=== PATIENT | female | born 1985 | race Caucasian/White ===

== ENCOUNTER 2017-01-08 07:39 | Outpatient (CLI) | payer BC ==
[~2017-01-08] VITALS: Ht 172.7 cm; Wt 101.2 kg
[~2017-01-08 07:39] MED LIST: ASCO500T5 PO; ASPI-586 PO; CETI10TA20 PO; DIPH25CA79 PO; OMEG10005 PO; PREN-142 PO; RANI150T15 PO; [UNRECOGNIZED DRUG - OTHER] PO
[2017-01-08 08:23] VITALS: BP 144/86
[2017-01-08] MEDS ORDERED: METH500T2 PO (09:10)
[2017-01-08] MEDS ORDERED: ASCO10006 PO (09:10)
== END 2017-01-08 08:30 | disposition home or self-care (01) ==
LOC: PREOP 07:39
PROVIDERS: ATTEND Obstetrics & Gynecology
DX: Z01.818 Encounter for other preprocedural examination (principal); O82 Encounter for cesarean delivery without indication; Z3A.00 Weeks of gestation of pregnancy not specified
CPT/HCPCS: 87081

== ENCOUNTER 2017-01-13 07:00 | Inpatient (IN) | payer BC ==
[~2017-01-13] VITALS: Ht 170.2 cm; Wt 100.2 kg
[~2017-01-13 07:00] MED LIST changes: +ASCO10006 PO; +METH500T2 PO
[2017-01-13 10:44] VITALS: BP 137/92
[2017-01-13] MEDS ORDERED: LACTATED RINGERS 1,000 ML IV ONE ×2 (10:45→12:22)
[2017-01-13] MEDS: LACTATED RINGERS 1,000 ML IV PRN ×2 (11:15→13:18)
[2017-01-13] MEDS ORDERED: metroNIDAZOLE 500MG/100ML IVPB 100 ML ONE (12:20)
[2017-01-13] MEDS ORDERED: FAMOTIDINE 20MG/2ML IV (PEPCID) ONE (12:21)
[2017-01-13] MEDS ORDERED: METOCLOPRAMIDE INJ 10 MG/2 ML (REGLAN) ONE (12:21)
[2017-01-13] MEDS ORDERED: CITRIC ACID/SOB CIT (BICITRA) 30 ML UDC ONE (12:21)
[2017-01-13] MEDS ORDERED: ceFAZolin 2 GM/50 ML NS 50 ML ONE (12:21)
[2017-01-13 12:30] VITALS: BP 139/84
[2017-01-13] MEDS ORDERED: CITRIC ACID/SOB CIT (BICITRA) 30 ML UDC PO ONE (12:45)
[2017-01-13] MEDS ORDERED: FAMOTIDINE 20MG/2ML IV (PEPCID) IV ONE (12:45)
[2017-01-13] MEDS ORDERED: METOCLOPRAMIDE INJ 10 MG/2 ML (REGLAN) IV ONE (12:45)
[2017-01-13] MEDS ORDERED: metroNIDAZOLE 500 MG/100 ML IVPB (PRE-MIX) IV ONE (12:45)
[2017-01-13] MEDS ORDERED: CATHETER FLUSH 10 ML SYR IV PRN (12:45)
[2017-01-13] MEDS ORDERED: ceFAZolin 2 GM/NS 50 ML IV ONE (12:45)
[2017-01-13 12:50] LABS: BASOPHILS % (AUTO) 0 % (0-10); EOSINOPHILS % (AUTO) 0 % (0-10); LYMPHOCYTES # (AUTO) 1.8 X 10^3 (1.0-4.0); LYMPHOCYTES % (AUTO) 17 % (12-44); MEAN CORPUSCULAR HEMOGLOBIN 30 PG (25-34); MEAN CORPUSCULAR HGB CONC 34 G/DL (32-36); MEAN CORPUSCULAR VOLUME 87 FL (80-99); MEAN PLATELET VOLUME 11.2 FL (7.4-10.4); MONOCYTES # (AUTO) 0.5 X 10^3 (0.0-1.0); MONOCYTES % (AUTO) 5 % (0-12); NEUTROPHILS # (AUTO) 8.4 X 10^3 (1.8-7.8); NEUTROPHILS % (AUTO) 78 % (42-75); PLATELET COUNT 201 10^3/uL (130-400); RED BLOOD COUNT 4.25 10^6/uL (4.35-5.85); RED CELL DISTRIBUTION WIDTH 13.9 % (10.0-14.5); WHITE BLOOD COUNT 10.7 10^3/uL (4.3-11.0)
--- NOTE | 2017-01-13 12:59 | History & Physical ---
History and Physical Date Seen by Provider: Jan 13, 2017 Time Seen by Provider: 12:55 this patient is a 31-year-old 1 white female with a due date of February 04, 2017 based on an ultrasound performed in the second trimester. At best assessment this patient is at the less than 36 weeks is very likely at 38 weeks and could potentially be passing 40 weeks. She has gestational diabetic and also has -induced hypertension requiring Aldomet for blood pressure control she is admitted now for elective primary delivery at her request. She is fully counseled regarding delivery options including trial of labor versus a delivery she is adamant in that she does not want to labor she does not want to experience vaginal delivery she does not want to potentially suffer the sequelae and terms of pelvic support and adherent to a vaginal delivery. She has repeatedly requested delivery. Surgical risks complications recovering follow-up involvement fully discussed patient presents now ready to proceed for delivery. patient did have a group B strep culture performed on December 24, 2016 that was negative. Allergies are none medications are vitamins/vitamin C/omega-3/Zyrtec/Zantac/Benadryl/ Colace/ASA 81 mg daily past medical history, past surgical history, family history, social history, and obstetric history are per the antepartum record HEENT exam is normal Neck supple no hepatomegaly Abdomen is gravid soft nontender nondistended Extremities show no clubbing cyanosis. Homans sign. Pelvic exam is deferred Normal heart rate pattern with occasional contraction Laboratory Tests 01/13/17 11:31 assessment and plan term at 38 weeks gestation patient with gestational diabetes and -induced hypertension. She presents now for scheduled elective primary delivery. term at 38 weeks gestation with gestational diabetes and request for primary delivery Allergies and Home Medications Allergies Coded Allergies: No Known Drug Allergies (Unverified , 01/08/17) Home Medications Ascorbic Acid 1,000 Mg Tablet, 1,000 MG PO DAILY, (Reported) Aspirin 81 Mg Tablet.dr, 81 MG PO DAILY, (Reported) Cetirizine HCl 10 Mg Tablet, 10 MG PO DAILY, (Reported) Methyldopa 500 Mg Tablet, 250 MG PO BID, (Reported) take 1/2 of 500mg tab [place]-3 Fatty Acids 1,000 Mg Capsule, 1,000 MG PO DAILY, (Reported) Vit No.124/Iron/FA 1 Each Tablet, 1 EACH PO DAILY, (Reported) Ranitidine HCl 150 Mg Tablet, 150 MG PO DAILY, (Reported) LARRY HERNANDEZ MD Jan 13, 2017 12:59 pm
[2017-01-13] MEDS ORDERED: D5 LR IV SOLUTION 1,000 ML IV SCH (13:00)
[2017-01-13] MEDS ORDERED: ceFAZolin INJECTION 2,000 MG in NS (IVPB) 50 ML IV ONE (13:00)
[2017-01-13] MEDS ORDERED: fentaNYL INJECTION 100 MCG/2 ML AMP ONE (13:08)
[2017-01-13] MEDS ORDERED: D5 LR IV SOLUTION 1,000 ML IV ONE (13:11)
[2017-01-13] MEDS ORDERED: KETAMINE HCL 100 MG/ML 5 ML VIAL ONE (13:12)
[2017-01-13] MEDS ORDERED: ONDANSETRON 4 MG/2 ML (SDV) Z0FRAN IVP PRN (13:15)
[2017-01-13] MEDS ORDERED: MEASLES,MUMPS,RUBELLA 1 EA INJ SC ONE (13:15)
[2017-01-13] MEDS ORDERED: INFLUENZA TRIvalent 2017-2018 0.5 ML/45 MCG SYR IM ONE (13:15)
[2017-01-13] MEDS ORDERED: MEPERIDINE (DEMEROL) INJ 100 MG/ML IM PRN (13:15)
[2017-01-13] MEDS ORDERED: PROMETHAZINE INJ 25 MG/ML (PHENERGAN) AMP IM PRN (13:15)
[2017-01-13] MEDS ORDERED: TETANUS,DIPTH,PERTUSS P/F (BOOSTRIX) 0.5 ML VIAL IM ONE (13:15)
[2017-01-13] MEDS ORDERED: ONDANSETRON 4 MG/2 ML (SDV) Z0FRAN ONE (13:46)
[2017-01-13] MEDS ORDERED: KETOROLAC 30 MG/ML VIAL ONE (13:46)
[2017-01-13] MEDS: KETOROLAC 30 MG/ML VIAL IVP SCH ×2 (14:00→20:40)
[2017-01-13] MEDS ORDERED: OXYTOCIN/NORMAL SALINE 1,000 ML IV ONE (14:04)
[2017-01-13 16:00] VITALS: BP 125/77
[2017-01-13] MEDS: OXYTOCIN/NORMAL SALINE 500 ML IV SCH ×2 (17:49→17:50)
[2017-01-13] MEDS: oxyCODONE/APAP 10/325MG (PERCOCET 10) TABLET PO PRN ×2 (19:00→23:27)
[2017-01-13 20:00] VITALS: BP 114/64
[2017-01-13] MEDS: DOCUSATE SODIUM 100 MG (COLACE) CAP PO SCH (20:40)
--- NOTE | 2017-01-13 22:01 | OPERATIVE REPORT ---
DATE OF SERVICE: 01/13/2017 PREOPERATIVE DIAGNOSES: A 38-week gestation with gestational diabetes and -induced hypertension. POSTOPERATIVE DIAGNOSES: A 38-week gestation with gestational diabetes and -induced hypertension with likely some degree of intrauterine growth restriction. OPERATIVE PROCEDURE: Primary low-transverse delivery of a viable male with Apgars of 7 and 9 at 1 and 5 respectively, weight 5 pounds 14 ounces. Cord blood, pH is 7.30 and time at 1347. OPERATIVE DESCRIPTION: With the patient in supine position, under satisfactory spinal anesthesia, she was prepped and draped in usual fashion for abdominal surgery. Coburn catheter was placed in the urinary bladder. A Pfannenstiel incision made through the skin with a scalpel. The patient's abdomen was entered in the usual manner. Bladder retractor placed in position, clean scalpel used to make a 4 cm hysterotomy incision transversally across the lower uterine segment that was extended by blunt dissection. On hysterotomy, a fairly small to moderate amount of amniotic fluid was released. A vigorous viable male infant was delivered via the uterine incision. Ervin forceps were applied to facilitate the delivery and avoid excessive pressure on the patient's upper abdomen. The infant was bulb suctioned on delivery of the head and again on completion of delivery. Stats were noted above. The umbilical cord was doubly clamped. The cord was cut and the baby passed to the pediatric nurse in attendance for delivery. Cord bloods were obtained. Placenta delivered spontaneously Alonso. It was somewhat small and somewhat calcified, but otherwise normal. It did have a 3-vessel cord. The uterus was exteriorized, anterior wiped clean with a wet laparotomy sponge. Uterine incision closed with a running lock suture of 2-0 Vicryl. Hemostasis was complete. The uterus was returned to the abdominal cavity. All blood clot and debris removed from the abdominal cavity. With sponge and needle counts correct, hemostasis assured. The anterior parietal peritoneum was closed with a running suture of 2-0 Vicryl. The rectus muscles were closed with that suture as well. The rectus fascia was closed with 2-0 Vicryl, subcutaneous tissue with 2-0 Vicryl and the skin was stapled. Sponge and needle counts were correct at the end of procedure. Estimated blood loss was around 500 mL. The patient tolerated the procedure well and was transferred to the recovery room in stable condition. The had been taken stable to the full-term nursery under the care of the pediatric nurse. Job ID: [id number] DocumentID: [id number] Dictated Date: 01/13/2017 14:09:38 Dinkey Mechanic Date: 01/13/2017 22:00:01 Dictated By: LARRY HERNANDEZ MD
[2017-01-14] VITALS: BP 112/74
[2017-01-14] MEDS: KETOROLAC 30 MG/ML VIAL IVP SCH ×2 (01:30→06:39)
[2017-01-14] MEDS: oxyCODONE/APAP 10/325MG (PERCOCET 10) TABLET PO PRN ×2 (03:07→09:29)
[2017-01-14 04:00] VITALS: BP 109/61
[2017-01-14] MEDS ORDERED: SIMETHICONE 80 MG (MYLICON) CHEW PO PRN (06:45)
--- NOTE | 2017-01-14 07:51 | Progress Note-Standard ---
Standard Progress Note Progress Notes/Assess & Plan Date Seen by Provider: Jan 14, 2017 Time Seen by Provider: 07:50 Progress/Assessment & Plan this patient is without complaint. She is ambulating,voiding, tolerating by mouth well, has good pain control Vital Signs Date Time Temp Pulse Resp B/P (MAP) Pulse Ox O2 Delivery O2 Flow Rate FiO2 01/14/17 04:00 97.7 64 18 109/61 98 Room Air 01/14/17 00:00 98.7 66 18 112/74 98 Room Air 01/13/17 20:00 98.0 72 20 114/64 97 Room Air 01/13/17 16:00 99.8 74 18 125/77 97 Room Air 01/13/17 13:20 Room Air 01/13/17 13:00 Room Air 01/13/17 12:30 66 18 139/84 Room Air 01/13/17 10:44 98.9 81 18 137/92 Room Air the abdomen is benign. The incision is clean dietary Initial clubbing cyanosis. Homans sign. Assessment and plan postoperative day number 1 status post primary delivery doing well. Plan is routine convalescent care today and discharged on the more LARRY HERNANDEZ MD Jan 14, 2017 7:51 am
[2017-01-14] MEDS ORDERED: IBUP-1780 PO (07:54)
[2017-01-14] MEDS ORDERED: DOCU100C37 PO (07:54)
[2017-01-14] MEDS ORDERED: OXYC-465 PO (07:54)
--- NOTE | 2017-01-14 07:56 | Discharge Instructions ---
Discharge Instructions Discharge Medications New, Converted or Re-Newed RX: RX on Chart Patient Instructions Patient Instructions: as directed Return to The Hospital For: as directed Activity & Diet Discharge Diet: No Restrictions Activity as Tolerated: No Orders-Post D/C & Referrals Follow Up Appt: RTC 1 week for incision check. Call to make follow up appt. for patient in 4 weeks. Wound Care: Remove vamshi, apply benzoin and steri strips. Activity Per routine post instructions. Please call in RX to patient pharmacy. Diet as tolerated Patient may shower or tub bathe as desired. Continue home meds LARRY HERNANDEZ MD Jan 14, 2017 7:55 am
[2017-01-14 09:29] VITALS: BP 116/70
[2017-01-14] MEDS: DOCUSATE SODIUM 100 MG (COLACE) CAP PO SCH ×2 (09:29→20:49)
[2017-01-14 12:25] VITALS: BP 91/62
[2017-01-14] MEDS: IBUPROFEN 800 MG (MOTRIN) TAB PO SCH ×2 (12:25→18:16)
--- NOTE | 2017-01-14 15:14 | Anesthesia-Regional Post-Op ---
Regional Patient Condition Mental Status: Alert, Oriented x3 Circulation: Same as Pre-Op Headache: Absent Sensation: Full Recovery Motor Block: Absent Post Op Complications Complications None Follow Up Care/Instructions Patient Instructions None needed. Anesthesia/Patient Condition Patient is doing well, no complaints, stable vital signs, no apparent adverse anesthesia problems. No complications reported per nursing. MOLLY BLACKBURN CRNA Jan 14, 2017 15:13
[2017-01-14 18:40] VITALS: BP 119/76
[2017-01-14 19:40] VITALS: BP 125/83
[2017-01-14] MEDS ORDERED: OXYC-202 PO (20:01)
[2017-01-15] MEDS: IBUPROFEN 800 MG (MOTRIN) TAB PO SCH ×2 (01:35→09:10)
[2017-01-15 02:18] VITALS: BP 120/77
--- NOTE | 2017-01-15 08:02 | Progress Note-Standard ---
Standard Progress Note Progress Notes/Assess & Plan Date Seen by Provider: Jan 15, 2017 Time Seen by Provider: 08:00 Progress/Assessment & Plan this patient is without complaint. She is ambulating,voiding, tolerating by mouth well, has good pain control Vital Signs Date Time Temp Pulse Resp B/P (MAP) Pulse Ox O2 Delivery O2 Flow Rate FiO2 01/14/17 04:00 97.7 64 18 109/61 98 Room Air 01/14/17 00:00 98.7 66 18 112/74 98 Room Air 01/13/17 20:00 98.0 72 20 114/64 97 Room Air 01/13/17 16:00 99.8 74 18 125/77 97 Room Air 01/13/17 13:20 Room Air 01/13/17 13:00 Room Air 01/13/17 12:30 66 18 139/84 Room Air 01/13/17 10:44 98.9 81 18 137/92 Room Air the abdomen is benign. The incision is clean dietary Initial clubbing cyanosis. Homans sign. Assessment and plan postoperative day number 1 status post primary delivery doing well. Plan is routine convalescent care today and discharged on the more January 15, 2017 Patient is without complaint. She is ambulating, voiding, tolerating by mouth, has good pain control, patient is requesting discharge home. Vital Signs Date Time Temp Pulse Resp B/P (MAP) Pulse Ox O2 Delivery O2 Flow Rate FiO2 01/15/17 02:18 98.7 74 16 120/77 97 Room Air 01/14/17 19:40 98.1 81 17 125/83 98 Room Air 01/14/17 18:40 98.8 76 16 119/76 97 Room Air 01/14/17 12:25 97.9 71 18 91/62 98 Room Air 01/14/17 09:29 97.9 80 18 116/70 97 Room Air vital signs are stable. Patient is afebrile. The abdomen is benign. Fundus is firm below the umbilicus and nontender. The incision is clean dry and intact. Extremities show no clubbing cyanosis. There is no Homans sign. Assessment and plan postoperative day number 2 status post primary delivery at 38 weeks gestation. Plan is for discharge home with follow-up in clinic. Final Diagnosis 38 week LARRY HERNANDEZ MD Jan 15, 2017 8:02 am
[2017-01-15] MEDS ORDERED: INFLUENZA TRIvalent 2017-2018 0.5 ML/45 MCG SYR IM ONE (08:57)
[2017-01-15] MEDS ORDERED: TETANUS,DIPTH,PERTUSS P/F (BOOSTRIX) 0.5 ML VIAL IM ONE (08:57)
[2017-01-15 09:10] VITALS: BP 122/78
[2017-01-15] MEDS: DOCUSATE SODIUM 100 MG (COLACE) CAP PO SCH (09:10)
== END 2017-01-15 11:40 | disposition home or self-care (01) | DRG 766 ==
LOC: LDRP 10:39
PROVIDERS: ADMIT Obstetrics & Gynecology; ATTEND Obstetrics & Gynecology
PROC: 10D00Z1 Extraction of Products of Conception, Low, Open Approach (ICD-10-PCS; principal; 2017-01-13 13:23)
DX: O24.429 Gestational diabetes mellitus in childbirth, unspecified control (principal); O13.4 Gestational [pregnancy-induced] hypertension without significant proteinuria, complicating childbirth; Z37.0 Single live birth; Z3A.38 38 weeks gestation of pregnancy; Z23 Encounter for immunization
CPT/HCPCS: 36415; 82962; 85025; 86850; 86900; 86901; 90715; 94664

== ENCOUNTER 2019-05-04 14:38 | Outpatient (CLI) | payer BC ==
[~2019-05-04] VITALS: Ht 170 cm; Wt 97.7 kg
[~2019-05-04 14:38] MED LIST changes: +ASCO-413 PO; -ASCO500T5 PO; +ATEN25TA PO; -CETI10TA20 PO; +CETI10TA21 PO; +DOCU100C37 PO; +DOCU100T2 PO; +IBUP-1780 PO; +LORA10TA76 PO; -METH500T2 PO; +METH500T23 PO; +OXYC-465 PO; +OXYC1TAB12 PO; +RANI-613 PO; -RANI150T15 PO
== END 2019-05-04 15:30 | disposition home or self-care (01) ==
LOC: PREOP 14:38
PROVIDERS: ATTEND Obstetrics & Gynecology
DX: Z01.818 Encounter for other preprocedural examination (principal)

== ENCOUNTER 2019-05-07 11:51 | Day surgery (SDC) | payer BC ==
[2019-05-07] VITALS (9 sets, daily range): BP systolic 97–128; BP diastolic 56–74
[~2019-05-07] VITALS: Ht 175.3 cm; Wt 97.7 kg
--- NOTE | 2019-05-07 09:06 | Progress Note-Pre Operative ---
Pre-Operative Progress Note H&P Reviewed The H&P was reviewed, patient examined and no changes noted. Date Seen by Provider: May 07, 2019 Time Seen by Provider: 14:00 Date H&P Reviewed: May 07, 2019 Time H&P Reviewed: 14:00 Pre-Operative Diagnosis: Menorrhagia/Endometrial polyp LARRY HERNANDEZ MD May 07, 2019 09:06
--- NOTE | 2019-05-07 09:07 | Progress Note-Post Operative ---
Post-Operative Progess Note Surgeon (s)/Events Administrative Assistant (s) Surgeon LARRY HERNANDEZ MD Events Administrative Assistant: NONE Pre-Operative Diagnosis Menorrhagia/Endometrial polyp Post-Operative Diagnosis same Procedure & Operative Findings Date of Procedure 05/07/19 Procedure Performed/Findings Hysteroscopy with directed biopsy and D&C Anesthesia Type GETA Estimated Blood Loss Estimated blood loss (mL): 100 mL Specimens/Packing Specimens Removed Endometrial tissue Packing: LARRY Mckeon MD May 07, 2019 09:07
--- NOTE | 2019-05-07 09:10 | Discharge Inst-Surgical ---
Discharge Inst-Surgical Depart Medication/Instructions New, Converted or Re-Newed RX: RX on Chart Consults/Follow Up Patient Instructions: as directed Orders & Referrals Follow Up Appt: Call to make follow up appt. for patient in 2 weeks. Activity: Rest for 24 hours, than as tolerated. Please call in RX to patient pharmacy. Diet: As tolerated-Clear Liquids only if nauseated. shower or tub bathe as desired. No driving for 24 hours, no alcoholic beverages for 24 hours, and nothing per vagina (no tampons, douching, or intercoarse) for 2 weeks. Patient to return to the clinic as soon as possible for: Temperature greater than 101F, Severe Pain, Foul discharge from incision or vagina, Excessive Bleeding (more than a period). Activity Activity as Tolerated: Yes Diet Discharge Diet: No Restrictions LARRY HERNANDEZ MD May 07, 2019 09:10
[~2019-05-07 11:51] MED LIST changes: +D5 LR IV SOLUTION 1,000 ML IV SCH; +HYDROcodone/APAP 10 MG/325 MG (LORTAB) TAB PO PRN; +KETOROLAC 30 MG/ML VIAL IVP ONE; +MEPERIDINE (DEMEROL) INJ 100 MG/ML IM ONE; +ONDANSETRON 4 MG/2 ML (SDV) Z0FRAN IVP PRN; +PROMETHAZINE INJ 25 MG/ML (PHENERGAN) AMP IM ONE
[2019-05-07] MEDS ORDERED: ceFAZolin INJECTION 1,000 MG ONE (12:25)
[2019-05-07] MEDS ORDERED: WATER (STERILE) FOR INJECTION 10 ML ONE ×2 (12:26→15:15)
[2019-05-07] MEDS ORDERED: LACTATED RINGERS 1,000 ML IV PRN (12:38)
[2019-05-07] MEDS ORDERED: ceFAZolin INJECTION 1,000 MG in WATER (STERILE) FOR INJECTION 10 ML IV ONE (12:45)
[2019-05-07] MEDS ORDERED: MIDAZOLAM 2 MG/2 ML (VERSED) VIAL IV ONE (13:00)
[2019-05-07] MEDS ORDERED: LIDOCAINE PF 2% 5 ML (XYLOCAINE) VIAL ONE (13:01)
[2019-05-07] MEDS ORDERED: ONDANSETRON 4 MG/2 ML (SDV) Z0FRAN ONE (13:01)
[2019-05-07] MEDS ORDERED: proPOfol 200 MG/20 ML (DIPRIVAN) VIAL IV ONE (13:01)
[2019-05-07] MEDS ORDERED: fentaNYL INJECTION 100 MCG/2 ML AMP ONE (13:02)
[2019-05-07] MEDS ORDERED: MIDAZOLAM 2 MG/2 ML (VERSED) VIAL ONE (13:02)
[2019-05-07] MEDS ORDERED: SEVOFLURANE (ULTANE) 15 ML INHAL SOLN ONE (14:48)
[2019-05-07] MEDS ORDERED: KETOROLAC 30 MG/ML VIAL ONE (14:48)
[2019-05-07] MEDS ORDERED: MEPERIDINE (DEMEROL) INJ 50 MG/ML IVP ONE (15:00)
[2019-05-07] MEDS ORDERED: ESTROGENS CONJ IV 25 MG/5 ML (PREMARIN) VIAL IV ONE (15:00)
[2019-05-07] MEDS ORDERED: ONDANSETRON 4 MG/2 ML (SDV) Z0FRAN IVP PRN (15:00)
[2019-05-07] MEDS ORDERED: morphine INJ 10 MG/ML 1ML (SYR OR VIAL) IVP ONE (15:00)
--- NOTE | 2019-05-07 15:07 | Anesthesia-General Post-Op ---
General Patient Condition Mental Status/LOC: Same as Preop Cardiovascular: Satisfactory Nausea/Vomiting: Absent Respiratory: Satisfactory Pain: Controlled Complications: Absent Post Op Complications Complications None Follow Up Care/Instructions Patient Instructions None needed. Anesthesia/Patient Condition Patient Condition Patient is doing well, no complaints, stable vital signs, no apparent adverse anesthesia problems. No complications reported per nursing. KVNG TORRES CRNA May 07, 2019 15:07
--- OUTSIDE RECORDS SUMMARY | 2019-05-07 15:54 | XMS REPORT | Continuity of Care Document ---
Author Organization Unknown Address Unknown Phone Unavailable Allergies There is no data. Medications There is no data. Problems There is no data. Procedures There is no data. Results There is no data. Encounters ACCT No. Visit Date/Time Discharge Status Pt. Type Provider Facility Loc./Unit Complaint [id number] 08/15/2018 09:07:55 08/15/2018 23:59: 59 CLS Outpatient Jody Montenegro
--- OUTSIDE RECORDS SUMMARY | 2019-05-07 15:54 | XMS REPORT ---
Author Author Vickie Montenegro [facility] Address [address] [place], [place] [id number] Care Team Providers Care Math And Sciences Department Chair Name Role Phone Jody Montenegro PCP Allergies and Adverse Reactions Name Reaction Notes No known drug allergy Plan of Treatment Not available. Medications Active Name Start Date Estimated Completion Date SIG Co mments Prozac 20 mg oral capsule take 1 capsule (20 mg) by oral route once daily in the evening hydrochlorothiazide 12.5 mg oral tablet 08/15/2018 01/13/20 19 Take 1 to 2 tabs PO daily for hypertension Problem List Description Status Onset Hypertension Active Depression Active Anxiety Active Essential (primary) hypertension Active 08/16/19 19 Dietary surveillance and counseling Active 08/15 Situational anxiety Active 08/15/2018 Situational depression Active 08/15/2018 History of gestational diabetes Active 9 Overweight Active 08/15/2018 Vital Signs Date Time BP-Sys(mm[Hg] BP-Mattie(mm[Hg]) HR(bpm) RR(rpm) Temp WT HT HC BMI BSA BMI Percentile O2 Sat(%) 08/15/2018 8:16:00 AM 140 mmHg 88 mmHg 76 bpm 18 rpm 98.3 F 238 lbs 68 in 36.1874 kg/m 2.2758 m 98 % Social History Name Description Comments Alcohol Use - Occasional Tobacco Never smoker 08/15/2018 - History of Procedures Not available. Results Summary Not available. History Of Immunizations Not available. History of Past Illness Name Date of Onset Comments Hypertension Depression Anxiety Essential (primary) hypertension 08/15/2018 Dietary surveillance and counseling 08/15/2018 Situational anxiety 08/15/2018 Situational depression 08/15/2018 History of gestational diabetes 08/15/2018 Overweight 08/15/2018 Essential (primary) hypertension Aug 15 2018 8:18AM Dietary surveillance and counseling Aug 15 2018 8:18AM Situational anxiety Aug 15 2018 8:18AM Situational depression Aug 15 2018 8:18AM History of gestational diabetes Aug 15 2018 8:18AM Overweight Aug 15 2018 8:18AM Payers Insurance Name Company Name Plan Name Plan Number Policy Number Arjun cy Group Number [id number] N/ A History of Encounters Visit Date Visit Type Provider 08/15/2018 Office visit Jody Montenegro APRN
--- OUTSIDE RECORDS SUMMARY | 2019-05-07 15:54 | XMS REPORT ---
Author Vickie Dawson [facility] Address [address] [place], [place] [id number] Care Team Providers Care Commercial Fishing Vessel Operator Name Role Phone Jody Montenegro PCP Allergies [...] to 2 tabs PO daily for hypertension atenolol 25 mg oral tablet 09/01/2018 12/30/2018 take 1 tablet (25 mg) by oral route once daily for 30 days Problem List Description Status Onset Hypertension Active [...] Arjun cy Group Number [id number]/ A History of Encounters Visit Date Visit Type Provider 08/15/2018 Office visit Jody Montenegro COOK FRY
[2019-05-07 16:27] LABS: BASOPHILS % (AUTO) 0 % (0-10); EOSINOPHILS % (AUTO) 0 % (0-10); HEMATOCRIT 41 % (35-52); HEMOGLOBIN 13.6 G/DL (11.5-16.0); LYMPHOCYTES # (AUTO) 1.8 X 10^3 (1.0-4.0); LYMPHOCYTES % (AUTO) 25 % (12-44); MEAN CORPUSCULAR HEMOGLOBIN 30 PG (25-34); MEAN CORPUSCULAR HGB CONC 33 G/DL (32-36); MEAN CORPUSCULAR VOLUME 91 FL (80-99); MEAN PLATELET VOLUME 10.6 FL (7.4-10.4); MONOCYTES # (AUTO) 0.4 X 10^3 (0.0-1.0); MONOCYTES % (AUTO) 5 % (0-12); NEUTROPHILS % (AUTO) 70 % (42-75); PLATELET COUNT 266 10^3/uL (130-400); RED CELL DISTRIBUTION WIDTH 13.6 % (10.0-14.5); WHITE BLOOD COUNT 7.1 10^3/uL (4.3-11.0)
--- NOTE | 2019-05-08 00:14 | OPERATIVE REPORT ---
DATE OF SERVICE: 05/07/2019 PREOPERATIVE DIAGNOSES: Dysfunctional uterine bleeding and intrauterine mass with endometrial biopsy showing endometrial polyp. POSTOPERATIVE DIAGNOSES: Dysfunctional uterine bleeding and intrauterine mass with endometrial biopsy showing endometrial polyp. OPERATIVE PROCEDURE: Hysteroscopy with directed biopsy and D and C. OPERATIVE DESCRIPTION: With the patient in supine position under satisfactory general anesthesia, she was repositioned in dorsal lithotomy position in the Moshe stirrups and prepped and draped in the usual fashion for vaginal surgery. Weighted speculum placed in posterior fornix of vagina, cervix exposed and grasped anteriorly with single tooth tenaculum. Uterus was sounded to 12 cm with uterine sound. The cervix was then serially dilated with Osiel dilators to accommodate a hysteroscope, which was introduced and using LR as a distending medium, the endometrial cavity was examined. There was a polypoid mass on the posterior surface of the endometrial cavity. This was removed under direct vision and sent to pathology labeled as such. There was an exophytic mass obscuring the view of the left tubal ostium. Tobacco Dipper biopsies were taken from that tissue and sent to pathology, labeled appropriately as well. The endometrial cavity was then sharply curettaged in all 4 quadrants to good uterine cry and that tissue was sent to pathology as endometrial curettings. The hysteroscope was reintroduced, endometrial cavity was examined. There was no remaining significant tissue. There was no significant bleeding. The procedure at this point was complete and terminated. The hysteroscope was removed as was the tenaculum. There was no bleeding from the puncture site. There was minimal bleeding from the cervical os. Sponge and needle counts were correct on completion of the procedure. The patient tolerated the procedure well. A total of 1000 mL of LR was used as distending medium, almost an entire quantity was recovered. Blood loss was likely fairly minimal. The patient was uneventfully awakened from general anesthesia and transferred to the recovery room in stable condition with plans for discharge home. Job ID: [id number] DocumentID: [id number] Dictated Date: 05/07/2019 14:47:23 Temperature Regulator Pyrometer Date: 05/08/2019 00:13:32 Dictated By: LARRY HERNANDEZ MD
== END 2019-05-07 16:30 | disposition home or self-care (01) ==
LOC: SDC 11:51
PROVIDERS: ATTEND Obstetrics & Gynecology
DX: N84.0 Polyp of corpus uteri (principal); Z11.2 Encounter for screening for other bacterial diseases; I10 Essential (primary) hypertension; Z79.82 Long term (current) use of aspirin; Z79.899 Other long term (current) drug therapy
CPT/HCPCS: 36415; 85025; 87081

== ENCOUNTER 2020-03-07 12:00 | Outpatient (RCR) | payer BC ==
[~2020-03-07] VITALS: Ht 170.2 cm; Wt 111.4 kg
[~2020-03-07 12:00] MED LIST changes: -ASCO-413 PO; +ASCO100024 PO; -ASCO10006 PO; +ASCO500T71 PO; -CETI10TA21 PO; +CETI10TA49 PO; -D5 LR IV SOLUTION 1,000 ML IV SCH; -HYDROcodone/APAP 10 MG/325 MG (LORTAB) TAB PO PRN; -KETOROLAC 30 MG/ML VIAL IVP ONE; -MEPERIDINE (DEMEROL) INJ 100 MG/ML IM ONE; -ONDANSETRON 4 MG/2 ML (SDV) Z0FRAN IVP PRN; -OXYC-465 PO; +OXYC-556 PO; -PROMETHAZINE INJ 25 MG/ML (PHENERGAN) AMP IM ONE
[2020-03-07] MEDS ORDERED: ASPI-999 PO (14:57)
[2020-03-07] MEDS ORDERED: CLC600T PO (14:57)
== END 2020-03-07 15:13 | disposition home or self-care (01) ==
LOC: PREOP 12:00
PROVIDERS: ATTEND Obstetrics & Gynecology
DX: Z01.812 Encounter for preprocedural laboratory examination (principal); O34.219 Maternal care for unspecified type scar from previous cesarean delivery; Z3A.00 Weeks of gestation of pregnancy not specified

== ENCOUNTER 2020-03-10 14:09 | Inpatient (IN) | payer BC ==
[~2020-03-10] VITALS: Ht 170.2 cm; Wt 111.6 kg
[2020-03-10] VITALS (9 sets, daily range): BP systolic 124–158; BP diastolic 52–82
--- NOTE | 2020-03-10 14:01 | NUR ---
NENA CARVAJAL presented to unit via AMBULATORY from HOME, accompanied by S/O. NENA CARVAJAL weighed, gowned, voided, and to bed. EFHM and TOCO applied, VS taken. NENA CARVAJAL oriented to bed controls, call light, TV, heat, and A/C controls.
[~2020-03-10 14:09] MED LIST changes: +ASPI-999 PO; +CLC600T PO
--- NOTE | 2020-03-10 14:23 | History & Physical ---
History and Physical Date Seen by Provider: Mar 10, 2020 Time Seen by Provider: 14:20 This patient is a 34-year-old multigravid white female who is approaching 38 weeks gestation. She has had a previously. She has GDM Typa A-1 and PIH. She also complained of increased upper body edema and numbness in the arms and hands as well as change of color of both thighs to a bluish-purple she denied leg pain discharge or bleeding She called with complaint of elevated blood pressure today in addition to cramps pain and pressure and feeling that something was not right. . She was directed to labor and delivery. Patient denies rupture membranes or bleeding. She has no bowel or bladder complaints specifically. Her GBS culture after 35 weeks gestation was negative. She is scheduled for a on March 13, 2020. Allergies are none Medications are vitamins Medical social and surgical history is all per her antepartum record HEENT exam is normal - Although the complexion is somewhat rodney Neck is supple no lymphadenopathy no thyromegaly Abdomen is gravid soft nontender nondistended Extremities show no clubbing or cyanosis. There is fairly notable pitting pretibial edema. There is no Homans' sign. Assessment and plan 37+ weeks gestation in a patient with PIH and with type A1 gestational diabetes who presents with a myriad of complaints and a persistently elevated blood pressure. Considering that she was scheduled for a repeat and 2 days we will go ahead and admit now obtain preeclampsia lab work and consider proceeding with repeat now rather than wait over the weekend. Patient is quite anxious over potential complications as her continues and is relieved at the prospect of accomplishing the delivery now rather than wating several more days. 37 weeks GDM / PIH Allergies and Home Medications Allergies Coded Allergies: No Known Drug Allergies (Unverified , 05/04/19) Home Medications Ascorbic Acid 1,000 Mg Tablet, 1,000 MG PO DAILY, (Reported) Aspirin 81 Mg Tab.chew, 81 MG PO DAILY, (Reported) Calcium Carbonate 600 Mg Tablet, 600 MG PO DAILY, (Reported) Docusate Sodium 100 Mg Tablet, 100 MG PO DAILY PRN for CONSTIPATION-1ST LINE, (Reported) Docusate Sodium 100 Mg Capsule, 100 MG PO BID Prescribed by: LARRY TAYLOR on 03/10/20 1431 Ibuprofen 800 Mg Tablet, 800 MG PO Q6H PRN for PAIN Prescribed by: LARRY TAYLOR on 03/10/20 1431 Oxycodone HCl/Acetaminophen 1 Each Tablet, 1 TAB PO Q8H PRN for PAIN-MODERATE Prescribed by: LARRY TAYLOR on 03/10/20 1431 Vit No.124/Iron/FA 1 Each Tablet, 1 EACH PO DAILY, (Reported) Patient Home Medication List Home Medication List Reviewed: Yes LARRY HERNANDEZ MD Mar 10, 2020 14:22
[2020-03-10] MEDS ORDERED: DOCU-143 PO (14:31)
[2020-03-10] MEDS ORDERED: IBUP-1780 PO (14:31)
[2020-03-10] MEDS ORDERED: OXYC1TAB12 PO (14:31)
--- NOTE | 2020-03-10 14:32 | Discharge Inst-Surgical ---
Discharge Inst-Surgical Depart Medication/Instructions New, Converted or Re-Newed RX: RX on Chart Consults/Follow Up Patient Instructions: As directed Orders & Referrals Follow Up Appt: RTC Next Friday, March 17, 2020 at 9:30 AM for incision check. Call to make follow up appt. for patient in 4 weeks. Wound Care: Remove vamshi, apply benzoin and steri strips. Activity Per routine post instructions. Please call in RX to patient pharmacy. Diet as tolerated Patient may shower or tub bathe as desired. Continue home meds Activity Activity as Tolerated: No Diet Discharge Diet: No Restrictions LARRY HERNANDEZ MD Mar 10, 2020 14:31
[2020-03-10] MEDS ORDERED: D5 LR IV SOLUTION 1,000 ML IV SCH ×3 (14:45→22:00)
[2020-03-10] MEDS ORDERED: D5 LR IV SOLUTION 1,000 ML IV ONE (14:47)
[2020-03-10 14:55] LABS: BASOPHILS % (AUTO) 0 % (0-10); EOSINOPHILS % (AUTO) 0 % (0-10); HEMATOCRIT 35 % (35-52); HEMOGLOBIN 12.1 g/dL (11.5-16.0); LYMPHOCYTES # (AUTO) 0.8 10^3/uL (1.0-4.0); LYMPHOCYTES % (AUTO) 12 % (12-44); MEAN CORPUSCULAR HEMOGLOBIN 31 pg (25-34); MEAN CORPUSCULAR HGB CONC 35 g/dL (32-36); MEAN CORPUSCULAR VOLUME 89 fL (80-99); MEAN PLATELET VOLUME 11.3 fL (9.0-12.2); MONOCYTES # (AUTO) 0.4 10^3/uL (0.0-1.0); MONOCYTES % (AUTO) 6 % (0-12); NEUTROPHILS # (AUTO) 5.6 10^3/uL (1.8-7.8); NEUTROPHILS % (AUTO) 78 % (42-75); PLATELET COUNT 165 10^3/uL (130-400); WHITE BLOOD COUNT 7.2 10^3/uL (4.3-11.0)
[2020-03-10 15:07] LABS: ALANINE AMINOTRANSFERASE 24 U/L (0-55); ALBUMIN 3.3 GM/DL (3.2-4.5); ALKALINE PHOSPHATASE 112 U/L (40-136); BILIRUBIN,TOTAL 0.5 MG/DL (0.1-1.0); BUN/CREATININE RATIO 7; CALCIUM 8.7 MG/DL (8.5-10.1); CARBON DIOXIDE 19 MMOL/L (21-32); CHLORIDE 106 MMOL/L (98-107); CREATININE SERUM 0.69 MG/DL (0.60-1.30); GFR ESTIMATED > 60; GLUCOSE 137 MG/DL (70-105); POTASSIUM 3.4 MMOL/L (3.6-5.0); SODIUM 136 MMOL/L (135-145); TOTAL PROTEIN 6.1 GM/DL (6.4-8.2); URIC ACID 4.6 MG/DL (2.6-7.2)
[2020-03-10] MEDS ORDERED: ceFAZolin INJECTION 2,000 MG in WATER (STERILE) FOR INJECTION 10 ML IV ONE (15:15)
[2020-03-10] MEDS ORDERED: metroNIDAZOLE 500MG/100ML IVPB 100 ML IV ONE (15:15)
[2020-03-10] MEDS ORDERED: METOCLOPRAMIDE INJ 10 MG/2 ML (REGLAN) IV ONE (19:00)
[2020-03-10] MEDS ORDERED: FAMOTIDINE 20MG/2ML IV (PEPCID) IV ONE (19:00)
[2020-03-10] MEDS ORDERED: LACTATED RINGERS 1,000 ML IV PRN ×2 (19:00)
[2020-03-10] MEDS ORDERED: CITRIC ACID/SOB CIT (BICITRA) 30 ML UDC PO ONE (19:00)
[2020-03-10] MEDS ORDERED: ceFAZolin 2 GM IV Premixed 50 ML ONE (19:33)
[2020-03-10] MEDS ORDERED: metroNIDAZOLE 500MG/100ML IVPB 100 ML ONE (19:33)
[2020-03-10] MEDS ORDERED: ONDANSETRON 4 MG/2 ML (SDV) Z0FRAN ONE ×2 (19:34→20:39)
[2020-03-10] MEDS ORDERED: fentaNYL INJECTION 100 MCG/2 ML AMP ONE (19:34)
[2020-03-10] MEDS ORDERED: OXYTOCIN PRE-MIX DRIP 1,000 ML IV ONE (19:34)
[2020-03-10] MEDS ORDERED: METOCLOPRAMIDE INJ 10 MG/2 ML (REGLAN) IV PRN (20:30)
[2020-03-10] MEDS ORDERED: NALOXONE 0.4 MG/ML 1 ML (NARCAN) VIAL IV PRN ×2 (20:30)
[2020-03-10] MEDS ORDERED: diphenhydrAMINE 50 MG/ML INJ (BENADRYL) IV PRN (20:30)
[2020-03-10] MEDS ORDERED: ONDANSETRON 4 MG/2 ML (SDV) Z0FRAN IV PRN (20:30)
[2020-03-10] MEDS ORDERED: morphine INJ 10 MG/ML 1ML (SYR OR VIAL) IVP ONE (20:30)
[2020-03-10] MEDS ORDERED: ONDANSETRON 4 MG/2 ML (SDV) Z0FRAN IVP PRN ×2 (20:30→22:00)
[2020-03-10] MEDS ORDERED: PHENYLEPHRINE 100 MCG/ML 10 ML (ANESTHESIA) SYR ONE (20:38)
[2020-03-10] MEDS ORDERED: KETOROLAC 30 MG/ML VIAL ONE (20:39)
[2020-03-10] MEDS ORDERED: BUPIVACAINE 0.5% 30 ML (SENSORCAINE) VIAL ONE (20:39)
[2020-03-10] MEDS ORDERED: OXYTOCIN PRE-MIX DRIP 500 ML IV SCH (22:00)
[2020-03-10] MEDS ORDERED: KETOROLAC 30 MG/ML VIAL IVP SCH (22:00)
[2020-03-10] MEDS ORDERED: MEASLES,MUMPS,RUBELLA 1 EA INJ SC ONE (22:00)
[2020-03-10] MEDS ORDERED: fentaNYL INJECTION 100 MCG/2 ML AMP IVP PRN (22:00)
[2020-03-10] MEDS ORDERED: TETANUS,DIPTH,PERTUSS P/F (BOOSTRIX) 0.5 ML VIAL IM ONE (22:00)
[2020-03-11] MEDS: oxyCODONE/APAP 10/325MG (PERCOCET 10) TABLET PO PRN ×4 (02:08→19:26)
--- NOTE | 2020-03-11 02:43 | OPERATIVE REPORT ---
DATE OF SERVICE: 03/10/2020 PREOPERATIVE DIAGNOSES: 37+ weeks' gestation with previous , PIH, and gestational diabetes. POSTOPERATIVE DIAGNOSES: 37+ weeks' gestation with previous , PIH, and gestational diabetes. OPERATIVE PROCEDURE: Repeat low transverse delivery of a viable female infant with Apgars of 8 and 9 at 1 and 5 minutes respectively, weight 7 pounds 15 ounces. Cord blood gas of 7.19 and a time of 20:24. OPERATIVE DESCRIPTION: With the patient in the supine position under satisfactory spinal analgesia, the patient was prepped and draped in the usual fashion for abdominal surgery. Coburn catheter was placed in the urinary bladder. A Pfannenstiel incision was made through skin with scalpel, the patient's abdomen entered in the usual manner. Bladder retractor placed into position and clean scalpel used to make a 4 cm hysterotomy incision transversely across the lower uterine segment. That was extended bluntly as well, releasing a small amount of clear amniotic fluid. Ervin forceps were applied to facilitate the delivery of the viable female infant with Apgars and stats as noted above. The infant was bulb suctioned on delivery of the head and again on completion of delivery. Umbilical cord was doubly clamped and cut and the passed to the pediatric nurse in attendance for delivery. Cord bloods were obtained. The placenta delivered spontaneously Alonso. It was normal with a 3-vessel cord. The uterus was exteriorized and interior wiped clean with a wet laparotomy sponge and then the uterine incision was closed with a running locked suture of 2-0 Vicryl. Hemostasis was complete. The uterus was returned to the abdominal cavity. All blood clot and debris removed from the abdominal cavity. With sponge and needle counts correct, hemostasis assured, the anterior parietal peritoneum was closed with running suture of 2-0 Vicryl. Rectus muscles were closed with that sutures well. The rectus fascia was closed with 2-0 Vicryl and the skin was stapled. Sponge and needle counts were correct on completion of procedure. Estimated blood loss was around 400 mL. The patient tolerated the procedure well and was transferred to the recovery room in stable condition. The infant had remained in the OR with the mom. Job ID: [id number] DocumentID: [id number] Dictated Date: 03/10/2020 20:58:05 Travel Nurse Date: 03/11/2020 02:42:31 Dictated By: LARRY HERNANDEZ MD
[2020-03-11 03:30] VITALS: BP 117/63
[2020-03-11] MEDS ORDERED: IBUPROFEN 800 MG (MOTRIN) TAB PO ONE (08:09)
[2020-03-11] MEDS: IBUPROFEN 800 MG (MOTRIN) TAB PO SCH ×3 (08:15→20:05)
[2020-03-11] MEDS: DOCUSATE SODIUM 100 MG (COLACE) CAP PO SCH ×2 (08:15→20:04)
[2020-03-11 08:19] VITALS: BP 122/58
[2020-03-11] MEDS ORDERED: DOCUSATE SODIUM 100 MG (COLACE) CAP PO SCH (09:00)
--- NOTE | 2020-03-11 09:00 | NUR ---
Pt up ambulating in hallways. No s/s of distress noted.
--- NOTE | 2020-03-11 10:09 | NUR ---
Dr. Wells to room to see pt. No new orders rec'd.
--- NOTE | 2020-03-11 10:27 | Progress Note ---
Standard Progress Note Progress Notes/Assess & Plan Date Seen by a Provider: Mar 11, 2020 Time Seen by a Provider: 10:25 Progress/Assessment & Plan This patient is without complaint she is ambulating, voiding, tolerating oral intake well and has good pain control. She denies chest pain, denies shortness of breath, denies nausea vomiting, and denies headache Vital Signs Date Time Temp Pulse Resp B/P (MAP) Pulse Ox O2 Delivery O2 Flow Rate FiO2 03/11/20 08:19 37.3 82 18 122/58 (79) 100 Room Air 03/11/20 03:30 36.5 84 16 117/63 (81) 98 Room Air 03/10/20 23:20 37.0 91 16 124/65 (84) 97 Room Air 03/10/20 22:25 37.1 93 18 143/68 (93) 97 Room Air 03/10/20 21:50 36.9 20 142/80 (100) 100 Room Air 03/10/20 21:25 37.2 26 140/52 (81) 100 Room Air 03/10/20 21:10 37 18 144/66 (92) 100 Room Air 03/10/20 20:50 36.8 30 147/71 (96) 99 Room Air 03/10/20 19:50 37.3 96 18 158/77 (104) 99 Room Air 03/10/20 19:42 152/82 (105) Room Air 03/10/20 14:22 36.9 96 18 132/71 (91) Room Air I & O 03/11/20 07:00 Intake Total 5910 ml Output Total 680 ml Balance 5230 ml Vital signs are stable. Patient is afebrile. The abdomen is benign. Extremities show no clubbing or cyanosis. There is no Homans' sign. Assessment and plan postoperative day #1 status post repeat delivery at 37+ weeks gestation. Patient is doing well and will have routine convalescent care Final Diagnosis 37-week repeat delivery LARRY HERNANDEZ MD Mar 11, 2020 10:27
[2020-03-11 12:19] VITALS: BP 117/56
--- NOTE | 2020-03-11 14:56 | Anesthesia-Regional Post-Op ---
Regional Patient Condition Mental Status: Alert, Oriented x3 Circulation: Same as Pre-Op Headache: Absent Sensation: Full Recovery Motor Block: Absent Post Op Complications Complications None Follow Up Care/Instructions Patient Instructions None needed. Anesthesia/Patient Condition Patient is doing well, no complaints, stable vital signs, no apparent adverse anesthesia problems. No complications reported per nursing. KVNG TORRES CRNA Mar 11, 2020 14:56
[2020-03-11 16:15] VITALS: BP 118/56
[2020-03-11 20:15] VITALS: BP 124/74
[2020-03-12] MEDS: oxyCODONE/APAP 10/325MG (PERCOCET 10) TABLET PO PRN (00:14)
[2020-03-12] MEDS: IBUPROFEN 800 MG (MOTRIN) TAB PO SCH ×4 (02:07→20:29)
[2020-03-12 02:16] VITALS: BP 121/67
[2020-03-12 08:00] VITALS: BP 122/69
[2020-03-12] MEDS: DOCUSATE SODIUM 100 MG (COLACE) CAP PO SCH ×2 (08:02→20:29)
--- NOTE | 2020-03-12 08:15 | NUR ---
Pt tearful about feedings. This RN sat at bedside and discussed feeding with pt. Encouragement offered, explained we will support her and give her the tools to be successful whether she chooses breast or bottle feeding. Pt feeling reassured after conversation.
[2020-03-12] MEDS: CALCIUM CARBONATE 500 MG (TUMS) TAB.CHEW PO PRN ×2 (09:18→13:10)
--- NOTE | 2020-03-12 11:15 | NUR ---
Dr Wells here to see pt. Plan for dismissal for tomorrow morning as baby is staying another night
--- NOTE | 2020-03-12 11:16 | Progress Note ---
Standard Progress Note Progress Notes/Assess & Plan Date Seen by a Provider: Mar 12, 2020 Time Seen by a Provider: 11:15 Progress/Assessment & Plan This patient is without complaint she is ambulating, voiding, tolerating oral intake well and has good pain control. She denies chest pain, denies shortness of breath, denies nausea vomiting, and denies headache Vital Signs Date Time Temp Pulse Resp B/P (MAP) Pulse Ox O2 Delivery O2 Flow Rate FiO2 03/11/20 08:19 37.3 82 18 122/58 (79) 100 Room Air 03/11/20 03:30 36.5 84 16 117/63 (81) 98 Room Air 03/10/20 23:20 37.0 91 16 124/65 (84) 97 Room Air 03/10/20 22:25 37.1 93 18 143/68 (93) 97 Room Air 03/10/20 21:50 36.9 20 142/80 (100) 100 Room Air 03/10/20 21:25 37.2 26 140/52 (81) 100 Room Air 03/10/20 21:10 37 18 144/66 (92) 100 Room Air 03/10/20 20:50 36.8 30 147/71 (96) 99 Room Air 03/10/20 19:50 37.3 96 18 158/77 (104) 99 Room Air 03/10/20 19:42 152/82 (105) Room Air 03/10/20 14:22 36.9 96 18 132/71 (91) Room Air I & O 03/11/20 07:00 Intake Total 5910 ml Output Total 680 ml Balance 5230 ml Vital signs are stable. Patient is afebrile. The abdomen is benign. Extremities show no clubbing or cyanosis. There is no Homans' sign. Assessment and plan postoperative day #1 status post repeat delivery at 37+ weeks gestation. Patient is doing well and will have routine convalescent care March 12, 2020 Patient is without complaint. She is ambulating, voiding, tolerating oral intake well and has good pain control. Vital Signs Date Time Temp Pulse Resp B/P (MAP) Pulse Ox O2 Delivery O2 Flow Rate FiO2 03/12/20 08:00 36.5 85 18 122/69 (86) 99 Room Air 03/12/20 02:16 36.0 75 18 121/67 (85) 98 Room Air 03/11/20 20:15 36.4 90 18 124/74 (91) 97 Room Air 03/11/20 16:15 36.4 73 18 118/56 (76) Room Air 03/11/20 12:19 36.5 75 18 117/56 (76) 97 Room Air Vital signs are stable. Patient is afebrile. The abdomen is benign. The surgical incision is clean dry and intact. Fundus is firm below the umbilicus and nontender. Extremities show no clubbing or cyanosis. There is no Homans' sign. Assessment and plan day #postoperative day #2 doing well. Plan is for routine convalescent care LARRY HERNANDEZ MD Mar 12, 2020 11:16
[2020-03-12 14:15] VITALS: BP 124/64
[2020-03-12] MEDS ORDERED: SIMETHICONE 80 MG (MYLICON) CHEW PO SCH (19:00)
[2020-03-12 20:53] VITALS: BP 121/58
[2020-03-13 02:00] VITALS: BP 154/83
[2020-03-13] MEDS: IBUPROFEN 800 MG (MOTRIN) TAB PO SCH ×2 (02:09→08:10)
--- NOTE | 2020-03-13 07:00 | NUR ---
report from bertha jade rn
--- NOTE | 2020-03-13 07:31 | Progress Note ---
Standard Progress Note Progress Notes/Assess & Plan Date Seen by a Provider: Mar 13, 2020 Time Seen by a Provider: 07:29 Progress/Assessment & Plan This patient is without complaint she is ambulating, voiding, tolerating oral intake well and has good pain control. She denies chest pain, denies shortness of breath, denies nausea vomiting, and denies headache Vital Signs Date Time Temp Pulse Resp B/P (MAP) Pulse Ox O2 Delivery O2 Flow Rate FiO2 03/11/20 08:19 37.3 82 18 122/58 (79) 100 Room Air 03/11/20 03:30 36.5 84 16 117/63 (81) 98 Room Air 03/10/20 23:20 37.0 91 16 124/65 (84) 97 Room Air 03/10/20 22:25 37.1 93 18 143/68 (93) 97 Room Air 03/10/20 21:50 36.9 20 142/80 (100) 100 Room Air 03/10/20 21:25 37.2 26 140/52 (81) 100 Room Air 03/10/20 21:10 37 18 144/66 (92) 100 Room Air 03/10/20 20:50 36.8 30 147/71 (96) 99 Room Air 03/10/20 19:50 37.3 96 18 158/77 (104) 99 Room Air 03/10/20 19:42 152/82 (105) Room Air 03/10/20 14:22 36.9 96 18 132/71 (91) Room Air I & O 03/11/20 07:00 Intake Total 5910 ml Output Total 680 ml Balance 5230 ml Vital signs are stable. Patient is afebrile. The abdomen is benign. Extremities show no clubbing or cyanosis. There is no Homans' sign. Assessment and plan postoperative day #1 status post repeat delivery at 37+ weeks gestation. Patient is doing well and will have routine convalescent care March 12, 2020 Patient is without complaint. She is ambulating, voiding, tolerating oral intake well and has good pain control. Vital Signs Date Time Temp Pulse Resp B/P (MAP) Pulse Ox O2 Delivery O2 Flow Rate FiO2 03/12/20 08:00 36.5 85 18 122/69 (86) 99 Room Air 03/12/20 02:16 36.0 75 18 121/67 (85) 98 Room Air 03/11/20 20:15 36.4 90 18 124/74 (91) 97 Room Air 03/11/20 16:15 36.4 73 18 118/56 (76) Room Air 03/11/20 12:19 36.5 75 18 117/56 (76) 97 Room Air Vital signs are stable. Patient is afebrile. The abdomen is benign. The surgical incision is clean dry and intact. Fundus is firm below the umbilicus and nontender. Extremities show no clubbing or cyanosis. There is no Homans' sign. Assessment and plan day #postoperative day #2 doing well. Plan is for routine convalescent care March 13, 2020 See discharge summary Final Diagnosis 37-week repeat LARRY HERNANDEZ MD Mar 13, 2020 07:31
--- NOTE | 2020-03-13 07:35 | Discharge Summary ---
Discharge Summary 37-week repeat delivery This patient is a 34-year-old 3 now para 2 white female who was admitted on March 10, 2020 from my clinic for repeat delivery. was performed without event. On postoperative day #1 the patient was ambulating, voiding, tolerating oral intake well and had good pain control. She was stable through the day. On postoperative day #2 the patient was unchanged. Now on postop day #3 the patient is ambulating, voiding, tolerating oral intake well and has good pain control. She is requesting discharge home. Is determined patient can be discharged home. Vital Signs Date Time Temp Pulse Resp B/P (MAP) Pulse Ox O2 Delivery O2 Flow Rate FiO2 03/13/20 02:00 36.5 76 18 154/83 (106) 97 Room Air 03/12/20 20:53 36.9 87 18 121/58 (79) 97 Room Air 03/12/20 14:15 36.3 82 18 124/64 (84) 99 Room Air 03/12/20 08:00 36.5 85 18 122/69 (86) 99 Room Air Vital signs are stable. Patient is afebrile. Fundus is firm below the umbilicus and nontender. Incision is clean dry and intact. Extremities show no clubbing cyanosis. There is no Homans' sign. Principal diagnosis this hospitalization is 37-week repeat delivery Secondary diagnoses are gestational diabetes/PIH/previous delivery Operation procedures include monitoring repeat under spinal anesthesia Patient was given appropriate discharge instructions verbally and in writing catheters were placed in his chart. Medications on discharge are Percocet Motrin and Colace patient is continued on vitamins. LARRY HERNANDEZ MD Mar 13, 2020 07:35
[2020-03-13 08:10] VITALS: BP 134/79
[2020-03-13] MEDS: DOCUSATE SODIUM 100 MG (COLACE) CAP PO SCH (08:10)
--- NOTE | 2020-03-13 08:15 | NUR ---
pt awake alert eating breakfast. resp unlabored and breath sounds CTA. HRRR. abd soft with positive bowel sounds. FFu/2 . abd incision intact. vag flow lt rubra. pt denies leg pain and moves all extremities actively. pt verbalizes desire for discharge to home this morning. reviewed plan of care with PT.
--- NOTE | 2020-03-13 08:30 | NUR ---
linens to room and pt up to shower
--- NOTE | 2020-03-13 11:00 | NUR ---
infant to [facility] for dr rodriguez to do discharge exam. PT reports needing to wake for feeding
--- NOTE | 2020-03-13 12:30 | NUR ---
home care instructions reviewed with pt. follow up appointment with dr gonzalez for friday for wound check as well as 4 week appointment made. care reviewed as well with parents. bracelets matched. pt acknowledges understanding of instructions verbally as well as with her signature. pt planning on eating lunch and nursing before discharge.
--- NOTE | 2020-03-13 13:30 | NUR ---
pt discharged to home with belted in rear facing car seat. discharge meds called to [facility] for pt as well as script given for oxycodone
[2020-03-15] MEDS ORDERED: IBUPROFEN 800 MG (MOTRIN) TAB PO SCH (22:00)
== END 2020-03-13 13:30 | disposition home or self-care (01) | DRG 788 ==
LOC: WSo 14:09 → LDRP 15:13
PROVIDERS: ADMIT Obstetrics & Gynecology; ATTEND Obstetrics & Gynecology
PROC: 10D00Z1 Extraction of Products of Conception, Low, Open Approach (ICD-10-PCS; principal; 2020-03-10 20:03)
DX: O34.211 Maternal care for low transverse scar from previous cesarean delivery (principal); O13.4 Gestational [pregnancy-induced] hypertension without significant proteinuria, complicating childbirth; Z20.822 Contact with and (suspected) exposure to COVID-19; Z37.0 Single live birth; O24.429 Gestational diabetes mellitus in childbirth, unspecified control; Z79.82 Long term (current) use of aspirin; Z3A.37 37 weeks gestation of pregnancy
CPT/HCPCS: 36415; 80053; 82570; 83615; 84156; 84550; 85025; 86850; 86900; 86901; 87635

== ENCOUNTER → 2020-09-06 | Outpatient (CLI) | payer BC ==
[~2020-09-06] MED LIST changes: +CALC600T91 PO; -CLC600T PO; +DOCU-143 PO
--- NOTE | 2020-09-06 14:57 | Diagnostic Imaging Report ---
INDICATION: 2-D and 3-D digital screening mammography with CAD. COMPARISON: This is a baseline study. Scattered fibroglandular elements in the breast with no mass, architecture distortions, spiculated lesion or suspicious calcifications. The skin, nipples and axilla appeared normal. IMPRESSION: Negative baseline screening mammograms. BI-RADS Category 1 ACR BI-RADS Category 1: Negative. Result letter will be mailed to the patient. Note: At least 10% of breast cancer is not imaged by mammography. Dictated by: Dictated on workstation # [id number]
== END ==
LOC: RAD 13:45
PROVIDERS: ATTEND Obstetrics & Gynecology
DX: Z12.31 Encounter for screening mammogram for malignant neoplasm of breast (principal)
CPT/HCPCS: 77063; 77067

== ENCOUNTER 2020-11-07 11:15 | Outpatient (CLI) | payer BC ==
[2020-11-07] MEDS ORDERED: ATEN25TA PO (15:19)
[2020-11-10] MEDS ORDERED: DOCU-143 PO (10:26)
[2020-11-10] MEDS ORDERED: IBUP-1780 PO (10:26)
[2020-11-10] MEDS ORDERED: OXYC1TAB87 PO (10:26)
== END 2020-11-07 15:27 | disposition home or self-care (01) ==
LOC: PREOP 11:15
PROVIDERS: ATTEND Obstetrics & Gynecology
DX: Z01.818 Encounter for other preprocedural examination (principal)

== ENCOUNTER 2020-11-10 08:37 | Day surgery (SDC) | payer BC ==
--- NOTE | 2020-11-09 20:31 | Progress Note-Pre Operative ---
Pre-Operative Progress Note H&P Reviewed The H&P was reviewed, patient examined and no changes noted. Date Seen by Provider: Nov 10, 2020 Time Seen by Provider: : Date H&P Reviewed: Nov 10, 2020 Time H&P Reviewed: : Pre-Operative Diagnosis: Menometrorrhagia LARRY HERNANDEZ MD Nov 09, 2020 20:31
--- NOTE | 2020-11-09 20:32 | Progress Note-Post Operative ---
Post-Operative Progess Note Surgeon (s)/Information Systems Architect (s) Surgeon LARRY HERNANDEZ MD Information Systems Architect: Isidra Frias Pre-Operative Diagnosis Menometrorrhagia Post-Operative Diagnosis same Procedure & Operative Findings Date of Procedure 11/09/20 Procedure Performed/Findings TLH with B salpingectomy Anesthesia Type GETA Estimated Blood Loss Estimated blood loss (mL): 100cc Specimens/Packing Specimens Removed Uterus and tubes LARRY HERNANDEZ MD Nov 09, 2020 20:32
[~2020-11-10] VITALS: Ht 170.2 cm; Wt 95.5 kg
[2020-11-10] VITALS (12 sets, daily range): BP systolic 106–156; BP diastolic 44–86
--- OUTSIDE RECORDS SUMMARY | 2020-11-10 08:40 | XMS REPORT ---
Author Vickie Dawson [facility] Address [address] [place], [place] [id number] Care Team Providers Care Instructor Dancing Name Role Phone Jody Montenegro PCP Allergies and Adverse Reactions Name Reaction Notes No known drug allergy Plan of Treatment Not available. Medications Active Name Start Date Estimated Completion Date SIG Co mments Vitamin C oral take 1 by oral route gildardo y Adult Low Dose Aspirin 81 mg oral tablet,delayed release (DR/EC) take 1 tablet (81 mg) by oral route once daily loratadine 10 mg oral tablet take 1 table t (10 mg) by oral route once daily Sprintec (28) 0.25-35 mg-mcg oral tablet take 1 tablet by oral route once daily Mobic 15 mg oral tablet 05/24/2020 12/20/2020 take 1 t ablet (15 mg) by oral route once daily for 30 days Prozac 20 mg oral capsule 05/29/2020 12/25/2020 take 1 capsule (20 mg) by oral route once daily for 30 days atenolol 25 mg tablet 09/18/2020 01/16/2021 TAKE ONE TABLET BY MOUTH EVERY DAY Vyvanse 50 mg oral capsule 11/20/2020 12/20/2020 take 1 capsule (50 mg) by oral route once daily in the morning for 30 days Name Start Date Expiration Date SIG Comments hydrochlorothiazide 12.5 mg oral tablet 08/15/2018 01/13/20 19 Take 1 to 2 tabs PO daily for hypertension changed meds omeprazole 40 mg oral capsule,delayed release(DR/EC) 06/08/2019 01/04/2020 take 1 capsule (40 mg) by oral route once daily before a meal for 30 days Discontinued Name Start Date Discontinued Date SIG Comments Prozac 20 mg oral capsule 05/24/2020 take 1 capsule (20 mg) by oral route once daily in the evening atenolol 25 mg oral tablet 08/13/2019 05/29/2020 take 1 tablet (25 mg) by oral route once daily for 30 days oral 09/14/2020 take 1 by oral route daily spironolactone 25 mg oral tablet 05/29/2020 09/14/2020 take 1 tablet (25 mg) by oral route once daily for 30 days phentermine 37.5 mg oral tablet 08/02/2020 09/14/2020 take 1 tablet (37.5 mg) by oral route once daily before breakfast for 30 days spironolactone 25 mg tablet 09/17/2020 10/21/2020 TAKE ONE TABLET BY MOUTH EVERY DAY pt stated no loger takes Problem List Description Status Onset Hypertension Active Essential (primary) hypertension Active 08/16/19 19 Dietary surveillance and counseling Active 08/15 Situational anxiety Active 08/15/2018 Situational depression Active 08/15/2018 History of gestational diabetes Active 9 Overweight Active 08/15/2018 ADD (attention deficit disorder) without hyperactivity Activ e 09/24/2020 Binge eating disorder Active 09/24/2020 Vital Signs Date Time BP-Sys(mm[Hg] BP-Mattie(mm[Hg]) HR(bpm) RR(rpm) Temp WT HT HC BMI BSA BMI Percentile O2 Sat(%) 10/21/2020 8:54:00 AM 132 mm[Hg] 88 mm[Hg] 67 {beats}/min 12 rpm 98.1 F 210 lbs 68 in 31.9301 kg/m2 2.1378 m2 98 % 09/14/2020 4:41:00 PM 142 mm[Hg] 98 mm[Hg] 67 {beats}/min 18 rpm 97.9 F 210.312 lbs 68 in 31.98 kg/m2 2.14 m2 97 % 08/02/2020 4:26:00 PM 204 lbs 68 in 31.0178 kg /m2 2.107 m2 05/24/2020 9:41:00 AM 144 mm[Hg] 90 mm[Hg] 74 {beats}/min 16 rpm 97.9 F 210 lbs 68 in 31.93 kg/m2 2.14 m2 97 % 03/16/2020 11:14:00 AM 75 {beats}/min 98.6 F 96 % 08/15/2018 8:16:00 AM 140 mm[Hg] 88 mm[Hg] 76 {beats}/min 18 rpm 98.3 F 238 lbs 68 in 36.1874 kg/m2 2.2758 m2 98 % Social History Name Description Comments Alcohol Use - Occasional Tobacco Never smoker 08/15/2018 - History of Procedures Date Ordered Description Order Status 03/16/2020 12:00 AM COVID-19 Testing Returned 05/25/2020 12:00 AM COMPLETE CBC W/AUTO DIFF WBC Reviewed 05/25/2020 12:00 AM COMPREHEN METABOLIC PANEL Reviewed 05/25/2020 12:00 AM ASSAY THYROID STIM HORMONE Reviewed 05/25/2020 12:00 AM ASSAY OF FREE THYROXINE Reviewed 05/25/2020 12:00 AM T3 REVERSE Reviewed 05/25/2020 12:00 AM FREE ASSAY (FT-3) Reviewed 05/25/2020 12:00 AM ASSAY TRIIODOTHYRONINE (T3) Reviewed 05/25/2020 12:00 AM VITAMIN B-12 Reviewed 05/25/2020 12:00 AM VITAMIN D 25 HYDROXY Reviewed 05/25/2020 12:00 AM PROTOZOA ANTIBODY NOS Reviewed 05/25/2020 12:00 AM LYME DISEASE ANTIBODY Reviewed 05/25/2020 12:00 AM EHRLICHIA ANTIBODY Reviewed 05/25/2020 12:00 AM MISC Lab Reviewed 05/25/2020 12:00 AM ASSAY OF IRON Reviewed 05/25/2020 12:00 AM IRON BINDING TEST Reviewed 05/25/2020 12:00 AM ASSAY OF TRANSFERRIN Reviewed 05/25/2020 12:00 AM ASSAY OF FERRITIN Reviewed 05/25/2020 12:00 AM LIPID PANEL Reviewed 05/25/2020 12:00 AM RBC SED RATE AUTOMATED Reviewed 05/25/2020 12:00 AM C-REACTIVE PROTEIN Reviewed 05/25/2020 12:00 AM LUPUS PANEL Reviewed 08/02/2020 12:00 AM Blood Pressure or Weight Check-no charge Reviewed Results Summary Date and Description Results 05/25/2020 9:29 AM GLUCOSE 88 SODIUM 139 POTASS IUM 4.2 CHLORIDE 100.0 mmol/LCO2 24 BUN 10.0 mg/dLCREATININE 0.80 mg/dLSGOT/AST 53 SGPT/ALT 39 ALK PHOS 51 TOTAL PROTEIN 7.6 ALBUMIN 4.3 TOTAL BILI 1.0 CALCIUM 9.50 mg/dLAGE 34 GFR NonAA 82 GFR AA 99 eGFR 82 mL/min/1.73meGFR AA* >60 mL/min/1.73mTRIGLYCERIDES 158 CHOLESTEROL 182.0 mg/dLHDL 83 TOT CHOL/HDL 2.2 LDL (CALC) 67 IRON TOTAL 105 Transferrin 393 TIBC Calculation 491 %Saturation Calc 21 C REACTIVE PROTEIN 6.0 mg/LFREE T3 2.48 WBC 5.0 RBC 4.41 HGB 13.40 g/dLHCT 40.20 %MCV 91.0 fLMCH 30.40 pgMCHC 33.30 g/dLRDW SD 47 %RDW CV 14.0 %MPV 10.10 fLPLT 263 x10E3/uLNRBC# 0.00 NRBC% 0.0 %NEUT 63.0 %LYMP 30.8 %MONO 4.4 %EOS 0.8 %BASO 0.6 #NEUT 3.17 #LYMP 1.55 #MONO 0.22 #EOS 0.04 #BASO 0.03 MANUAL DIFF NOT IND TSH 1.48 FREE T4 0.82 VITAMIN D 44.0 FERRITIN 49.0 ng/mLVITAMIN B12 592 T3 TOTAL 1.44 SEDRATE 15 Complement C3, Serum 152 Complement C4, Serum 25 GUILLERMINA Direct Negative RA Latex Turbid. 12.1 DRAWING TRACER Antibodies <0.2 [place] Antibodies <0.2 Thyroid Peroxidase (TPO)Ab 8 Sjogren's Anti-SS-A <0.2 Sjogren's Anti-SS-B <0.2 Antiscleroderma- 70Antibodies <0.2 Anti-DNA (DS) Ab Qn 2 Lyme IgG/IgM Ab <0.91 Lyme Disease Ab, Quant,IgM <0.80 RMSF, IgG, EIA Negative [facility] Spotted Fever,IgM 0.16 E. chaffeensis (HME) IgGTiter Negative E. chaffeensis (HME) IgMTiter Negative Reverse T3, Serum 12.2 History Of Immunizations Not available. History of Past Illness Name Date of Onset Comments Hypertension Essential (primary) hypertension 08/15/2018 Dietary surveillance and counseling 08/15/2018 Situational anxiety 08/15/2018 Situational depression 08/15/2018 History of gestational diabetes 08/15/2018 Overweight 08/15/2018 ADD (attention deficit disorder) without hyperactivity 09/24 Binge eating disorder 09/24/2020 Essential (primary) hypertension Aug 15 2018 8:18AM Dietary surveillance and counseling Aug 15 2018 8:18AM Situational anxiety Aug 15 2018 8:18AM Situational depression Aug 15 2018 8:18AM History of gestational diabetes Aug 15 2018 8:18AM Overweight Aug 15 2018 8:18AM Cough Jun 08 2019 3:25PM Gastroesophageal reflux disease without esophagitis Jun 07 3:25PM Dyspnea Jun 08 2019 3:25PM Encounter for laboratory testing for COVID-19 virus Mar 16 9:27AM Cough Mar 16 2020 9:27AM Runny nose Mar 16 2020 9:27AM Essential (primary) hypertension May 24 2020 9:41AM Knee arthropathy May 24 2020 9:41AM Dietary surveillance and counseling May 24 2020 9:41AM Polyarthralgia May 24 2020 2:58PM Fatigue May 24 2020 2:58PM Essential (primary) hypertension May 24 2020 2:58PM Vitamin B12 deficiency May 24 2020 2:58PM Vitamin D deficiency May 24 2020 2:58PM Bitten or stung by nonvenomous insect an d other nonvenomous arthropods, initial encounter May 24 2020 2:58PM Weight gain May 24 2020 2:58PM Hair loss May 24 2020 2:58PM Iron deficiency anemia due to chronic blood loss May 24 2020 2:58PM Dizziness May 24 2020 2:58PM Headache May 24 2020 2:58PM Mixed hyperlipidemia May 24 2020 2:58PM Medication management Aug 02 2020 4:28PM Essential (primary) hypertension Sep 14 2020 4:44PM Binge eating disorder Sep 14 2020 4:44PM Dietary surveillance and counseling Sep 14 2020 4:44PM ADD (attention deficit disorder) without hyperactivity Aug 182020 4:44PM ADD (attention deficit disorder) without hyperactivity Oct 21 2020 8:59AM Binge eating disorder Oct 21 2020 8:59AM Dietary surveillance and counseling Oct 21 2020 8:59AM Essential (primary) hypertension Oct 21 2020 8:59AM Payers Insurance Name Company Name Plan Name Plan Number Policy Number Arjun cy Group Number [id number]/ A History of Encounters Visit Date Visit Type Provider 10/21/2020 Office visit Jody Montenegro APRN 09/14/2020 Office visit Jody Montenegro APRN 08/02/2020 Nurse visit Jody Montenegro APRN 05/24/2020 Office visit 05/24/2020 Office visit Jody Monten[place]ro APRN 03/16/2020 Office visit Nishi LANGSTON RN 06/08/2019 Office visit Jody Montenegro APRN 08/15/2018 Office visit Jody Montenegro APRN
--- OUTSIDE RECORDS SUMMARY | 2020-11-10 08:41 | XMS REPORT ---
Author Vickie Dawson [facility] Address [address] [place], [place] [id number] Care Team Providers Care Printing Engineer Name Role Phone Jody Montenegro PCP Allergies and Adverse Reactions Name Reaction Notes No known drug allergy Plan of Treatment Planned Activity Comments Planned Date Planned Time Plan/Goal CMP 05/29/2020 12:00 AM Medications Active Name Start Date Estimated Completion [...] oral route once daily for 30 days spironolactone 25 mg tablet 09/17/2020 09/12/2021 TAKE ONE TABLET BY MOUTH EVERY DAY Vyvanse 30 mg capsule 09/18/2020 10/18/2020 take 1 cap zohra (30 mg) by oral route once daily in the morning for 30 days atenolol 25 mg tablet 09/18/2020 01/16/2021 TAKE ONE TABLET BY MOUTH EVERY DAY Name Start Date Expiration Date SIG Comments [...] once daily before breakfast for 30 days Problem List Description Status Onset Hypertension Active Essential (primary) hypertension Active 08/16/19 Dietary surveillance and counseling Active 08/15 Situational anxiety Active 08/15/2018 Situational depression Active 08/15/2018 History of gestational diabetes Active 9 Overweight Active 08/15/2018 ADD (attention deficit disorder) without hyperactivity Activ e 09/24/2020 Binge eating disorder Active 09/24/2020 Vital Signs Date Time BP-Sys(mm[Hg] BP-Mattie(mm[Hg]) HR(bpm) RR(rpm) Temp WT HT HC BMI BSA BMI Percentile O2 Sat(%) 09/14/2020 4:41:00 PM 142 mm[Hg] 98 mm[Hg] 67 {beats}/min 18 rpm 97.9 F 210.312 lbs 68 in 31.9776 kg/m2 2.1394 m2 97 % 08/02/2020 4:26:00 PM 204 lbs 68 in 31.02 kg/m 2 2.11 m2 05/24/2020 9:41:00 AM 144 mm[Hg] 90 mm[Hg] 74 {beats}/min 16 rpm 97.9 F 210 lbs 68 in 31.9301 kg/m2 2.1378 m2 97 % 03/16/2020 11:14:00 AM 75 {beats}/min 98.6 F 96 % 08/15/2018 8:16:00 AM 140 mm[Hg] 88 mm[Hg] 76 {beats}/min 18 rpm 98.3 F 238 lbs 68 in 36.19 kg/m2 2.2758 m2 98 % Social History [...] GUILLERMINA Direct Negative RA Latex Turbid. 12.1 TOOL TECHNICIAN Antibodies <0.2 [place] Antibodies <0.2 Thyroid Peroxidase (TPO)Ab 8 Sjogren's Anti-SS-A <0.2 Sjogren's Anti-SS-B <0.2 Antiscleroderma- 70Antibodies <0.2 Anti-DNA (DS) Ab Qn 2 Lyme IgG/IgM Ab <0.91 Lyme Disease Ab, Quant,IgM <0.80 RMSF, IgG, EIA Negative [facility] Spotted Fever,IgM 0.16 E. chaffeensis (HME) IgGTiter [...] laboratory testing for COVID-19 virus Mar 16 2 021 9:27AM Cough Mar 16 2020 9:27AM Runny [...] 2:58PM Mixed hyperlipidemia May 24 2020 2:58PM Elevated liver enzymes May 29 2020 3:46PM Essential hypertension May 29 2020 3:46PM Medication management Aug 02 2020 4:28PM Essential (primary) hypertension Sep 14 2020 4:44PM Binge eating disorder Sep 14 2020 4:44PM Dietary surveillance and counseling Sep 14 2020 4:44PM ADD (attention deficit disorder) without hyperactivity Aug 182020 4:44PM Payers Insurance Name Company Name Plan Name Plan Number Policy Number Arjun Group Number Start Date BCBS [facility] [id number] N/ A History of Encounters Visit Date Visit Type Provider 09/14/2020 Office visit Jody Montenegro MANUFACTURING TEST ENGINEER 08/02/2020 Nurse visit Jody Montenegro MANUFACTURING TEST ENGINEER 05/24/2020 Office visit 05/24/2020 Office visit Jody Montenegro MANUFACTURING TEST ENGINEER 03/16/2020 Office visit Nishi LANGSTON RN 06/08/2019 Office visit Jody [place] APRN 08/15/2018 Office visit Jody [place]en[place]ro APRN
[2020-11-10] MEDS ORDERED: ceFAZolin INJECTION 1,000 MG in WATER (STERILE) FOR INJECTION 10 ML IV ONE (09:15)
[2020-11-10] MEDS ORDERED: ONDANSETRON 4 MG/2 ML (SDV) Z0FRAN IVP PRN ×2 (09:15)
[2020-11-10] MEDS ORDERED: D5 LR IV SOLUTION 1,000 ML IV SCH (09:15)
[2020-11-10] MEDS ORDERED: oxyCODONE/APAP 5/325MG (PERCOCET 5) TABLET PO PRN (09:15)
[2020-11-10 09:34] LABS: BASOPHILS % (AUTO) 1 % (0-10); EOSINOPHILS % (AUTO) 0 % (0-10); HEMATOCRIT 44 % (35-52); HEMOGLOBIN 14.6 g/dL (11.5-16.0); LYMPHOCYTES # (AUTO) 1.5 10^3/uL (1.0-4.0); LYMPHOCYTES % (AUTO) 30 % (12-44); MEAN CORPUSCULAR HEMOGLOBIN 30 pg (25-34); MEAN CORPUSCULAR HGB CONC 33 g/dL (32-36); MEAN CORPUSCULAR VOLUME 92 fL (80-99); MEAN PLATELET VOLUME 10.3 fL (9.0-12.2); MONOCYTES # (AUTO) 0.3 10^3/uL (0.0-1.0); MONOCYTES % (AUTO) 5 % (0-12); NEUTROPHILS # (AUTO) 3.2 10^3/uL (1.8-7.8); NEUTROPHILS % (AUTO) 63 % (42-75); PLATELET COUNT 271 10^3/uL (130-400); WHITE BLOOD COUNT 5.1 10^3/uL (4.3-11.0)
[2020-11-10] MEDS: LACTATED RINGERS 1,000 ML IV PRN ×3 (09:40→17:39)
[2020-11-10] MEDS ORDERED: LIDOCAINE/EPI 1%-1:100,000 (XYLOCAINE) 10 ML ONE (10:04)
[2020-11-10] MEDS ORDERED: MIDAZOLAM 2 MG/2 ML (VERSED) VIAL ONE (10:16)
[2020-11-10] MEDS ORDERED: fentaNYL INJ 100 MCG/2 ML AMP ONE ×3 (10:16→14:16)
[2020-11-10] MEDS ORDERED: IBUP-1780 PO (10:26)
[2020-11-10] MEDS ORDERED: OXYC1TAB87 PO (10:26)
[2020-11-10] MEDS ORDERED: DOCU-143 PO (10:26)
--- NOTE | 2020-11-10 10:28 | Discharge Inst-Surgical ---
Discharge Inst-Surgical Depart Medication/Instructions New, Converted or Re-Newed RX: Transmitted to Pharmacy Consults/Follow Up Patient Instructions: As directed Orders & Referrals Follow Up Appt: Return to clinic on Friday, November 13, 2020 for staple removal Call to make follow up appt. for patient in 4 weeks. Activity: Rest for 24 hours, than as tolerated. Wound Care: May remove Band-Aid tomorrow. Replace as desired. Keep incisions clean and dry. Wash daily with soap and water. Diet: As tolerated shower or tub bathe as desired. No driving for 24 hours, no alcoholic beverages for 24 hours, and nothing per vagina (no tampons, douching, or intercourse) for 8 weeks. Patient to return to the clinic as soon as possible for: Temperature greater than 101F, Severe Pain, Foul discharge from incision or vagina, Excessive Bleeding (more than a period). Activity Activity as Tolerated: No Diet Discharge Diet: No Restrictions LARRY HERNANEDZ MD Nov 10, 2020 10:28
[2020-11-10] MEDS ORDERED: proPOfol 200 MG/20 ML (DIPRIVAN) VIAL IV ONE (11:29)
[2020-11-10] MEDS ORDERED: NEOSTIGMINE 3 MG/3 ML VIAL ONE (11:30)
[2020-11-10] MEDS ORDERED: LIDOCAINE PF 2% 5 ML (XYLOCAINE) VIAL ONE (11:30)
[2020-11-10] MEDS ORDERED: GLYCOPYRROLATE 0.2 MG/ML (ROBINUL) 2 ML VIAL ONE (11:30)
[2020-11-10] MEDS ORDERED: ROCURONIUM 10 MG/ML 5 ML SYRINGE IV ONE (11:32)
[2020-11-10] MEDS ORDERED: ONDANSETRON 4 MG/2 ML (SDV) Z0FRAN ONE (11:33)
[2020-11-10] MEDS ORDERED: KETOROLAC 30 MG/ML VIAL ONE (11:33)
[2020-11-10] MEDS ORDERED: SEVOFLURANE (ULTANE) 15 ML INHAL SOLN ONE (11:34)
[2020-11-10] MEDS: KETOROLAC 30 MG/ML VIAL IVP SCH ×3 (11:35→23:28)
[2020-11-10] MEDS ORDERED: HYDROmorphone 2 MG/ML VIAL (DILAUDID) ONE (11:43)
[2020-11-10] MEDS ORDERED: IBUPROFEN 800 MG (MOTRIN) TAB PO SCH (12:00)
[2020-11-10] MEDS: fentaNYL INJ 100 MCG/2 ML AMP IVP PRN ×3 (13:18→15:46)
--- NOTE | 2020-11-10 13:49 | OPERATIVE REPORT ---
DATE OF SERVICE: 11/10/2020 PREOPERATIVE DIAGNOSES: Menorrhagia and menometrorrhagia. POSTOPERATIVE DIAGNOSES: Menorrhagia and menometrorrhagia. OPERATIVE PROCEDURE: 1. Total laparoscopic hysterectomy with bilateral salpingectomies. 2. Cystoscopy. OPERATIVE DESCRIPTION: With the patient in the supine position under satisfactory general anesthesia, she was repositioned in dorsal lithotomy position in the [facility] and prepped and draped in the usual fashion for abdominal and vaginal surgery. Weighted speculum placed in posterior fornix of vagina, cervix exposed and grasped anteriorly with single tooth tenaculum. Uterus sounded to 9 cm with uterine sound. Cervix was then serially dilated with Osiel dilators to accommodate a Vanesa II manipulator, which was placed using a 6 mm x 8 cm uterine probe and a 25 mm colpotomy ring. Sutures of #1 Vicryl placed at 3 and 9 o'clock position of the cervix to affix the uterus to the manipulator. Coburn catheter was placed in the urinary bladder and left to dependent drainage. The tenaculum and speculum were removed from the vagina. The patient was brought in low dorsal lithotomy position. A 12 mm incision was made 10 cm superior to the umbilicus in the midline. Veress needle was placed through that incision into the abdominal cavity. Correct placement confirmed with water drop test. The abdomen was insufflated with 2.4 liters of carbon dioxide and the Veress needle was removed and a 12 mm Optiview laparoscopic port was placed. Abdominal wall was transilluminated, and 8 mm ports were placed through incisions of those sizes 8 cm lateral to the umbilicus at a level 3 cm above the umbilicus. The patient was placed in Trendelenburg allowing the bowel spill out of the pelvis. The da Radha column was advanced on the patient and docked, the operative instruments were placed in right and left lateral ports and I retired to the da Radha console. At the console using the vessel sealer on the right and a bipolar fenestrated grasper on the left, the pelvis was first examined. The uterus was somewhat mottled in appearance consistent with adenomyosis. Both ovaries appeared normal as did the fallopian tube. The appendix was identified, it was a normal vermiform appendix. Attention was turned back to the pelvis. The uterus was elevated. The right fallopian tube was grasped and elevated. The mesosalpinx was clamped, cauterized and divided. This was continued stepwise across the uteroovarian pedicle, which was clamped, cauterized and divided with the vessel sealer as well that was continued across the broad ligament down to the cardinal ligament and then the same procedure was performed on the left, thus allowing for conservation of both ovaries and removal eventually of both fallopian tubes with the uterus. Anterior lower uterine segment peritoneum was exposed, and the bladder peritoneum was divided. The bladder was dissected down off of the lower uterine segment. Colpotomy incision was started at 12 o'clock position on the colpotomy ring. The colpotomy ring was exposed circumferentially completely and then the uterus with tubes still attached was extracted through the vagina. Vaginal cuff was closed with a single suture V-Loc barbed suture starting from the right angle and continuing all the way across to the left angle taking care to ensure inclusion of the uterine vessels bilaterally. Hemostasis internally was complete. There was no abnormal pathology. The operative instruments were removed as were the ports. The abdomen was evacuated of the insufflating gas and the skin incisions were closed with vamshi after closing the fascia at the supraumbilical incision with [id number] suture of 2-0 Vicryl. The vagina was examined. There was some bleeding from the posterior edge of the vaginal cuff. This was controlled with a running locked suture of 2-0 Vicryl. Hemostasis was now complete. The vaginal cuff was completely reapproximated. Cystoscopy was performed using saline as a distending medium. The right and left ureters were both identified, were both seemed to peristalse and efflux urine freely. The procedure at this point was complete. Sponge and needle counts were correct. Blood loss was around 100 mL. The patient was uneventfully awakened from her general anesthesia and transferred to the recovery room in stable condition. Job ID: [id number] DocumentID: [id number] Dictated Date: 11/10/2020 11:54:05 Water Engineer Date: 11/10/2020 13:48:36 Dictated By: LARRY HERNANDEZ MD
[2020-11-10] MEDS ORDERED: DOCUSATE SODIUM 100 MG (COLACE) CAP PO SCH (21:00)
[2020-11-11 05:00] VITALS: BP 135/69
[2020-11-11] MEDS: KETOROLAC 30 MG/ML VIAL IVP SCH (05:04)
[2020-11-11 05:45] VITALS: BP 135/69
[2020-11-11] MEDS ORDERED: DOCUSATE SODIUM 100 MG (COLACE) CAP PO SCH (09:00)
--- NOTE | 2020-11-11 12:50 | Anesthesia-General Post-Op ---
General Patient Condition Mental Status/LOC: Same as Preop Cardiovascular: Satisfactory Nausea/Vomiting: Absent Respiratory: Satisfactory Pain: Controlled Complications: Absent Post Op Complications Complications None Follow Up Care/Instructions Patient Instructions None needed. Anesthesia/Patient Condition Patient Condition Patient is doing well, no complaints, stable vital signs, no apparent adverse anesthesia problems. No complications reported per nursing. CRISTELA SANTANA CRNA Nov 11, 2020 12:50
== END 2020-11-11 05:45 | disposition home or self-care (01) ==
LOC: SDC 08:37 → LDRP 13:21 → SDC 11-11 05:45
PROVIDERS: ATTEND Obstetrics & Gynecology
DX: D25.1 Intramural leiomyoma of uterus (principal); N80.0 Endometriosis of uterus; N83.8 Other noninflammatory disorders of ovary, fallopian tube and broad ligament; I10 Essential (primary) hypertension; Z79.3 Long term (current) use of hormonal contraceptives; Z79.82 Long term (current) use of aspirin; Z79.899 Other long term (current) drug therapy
CPT/HCPCS: 36415; 84703; 85025; 86850; 86900; 86901; 87081; 88307; 94664